=== PATIENT | male | born 1935 | race Caucasian/White ===

== ENCOUNTER 2016-09-19 08:02 | Emergency (ER) | payer OTHER ==
--- NOTE | 2016-09-19 08:56 | DIAGNOSTIC IMAGING REPORT ---
PROCEDURE: CT HEAD WITHOUT CONTRAST INDICATION: TRAUMA/INJURY TECHNIQUE: Noncontrast axial images with sagittal and coronal reformations. COMPARISON: None. FINDINGS: Mild motion. 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 There are moderate chronic atrophic changes. Brain and ventricles are otherwise normal. No evidence of an acute process or hemorrhage. There are marked left vertebral and moderate cavernous carotid arterial calcifications Sinuses and mastoids are normal. IMPRESSION: 1. 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 2. Moderate atrophic changes. 3. Otherwise negative head CT. No evidence of acute process. 4. Findings discussed with Dr. Mery Patiño (0[address] All [address] scans at this facility use dose modulation, iterative reconstruction, and/or weight-based dosing when appropriate to reduce radiation dose to as low as reasonably achievable.
--- NOTE | 2016-09-19 10:35 | DIAGNOSTIC IMAGING REPORT ---
PROCEDURE: XR CHEST 1 VIEW INDICATION: SHORTNESS OF BREATH TECHNIQUE: Portable AP view (0950 hours). COMPARISON: None. FINDINGS: Moderate cardiomegaly with mild pulmonary vascular congestion/interstitial changes. Mediastinum is normal. There is an old fracture the left proximal humerus (partially obscured by markers). IMPRESSION: 1. Moderate cardiomegaly with borderline/mild congestive heart failure. 2. Otherwise negative chest.
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
--- NOTE | 2016-09-19 13:04 | ED ORDER SUMMARY ---
..... Patient: AMANDEEP JIMENEZ OrderSheet [facility] VisitID: [id number] [place] [address] 81y, M Registration Date/Time: 09/19/2016 ORDER SHEET Weight: 77.1 kg (stated) Allergies: Cephalexin GENERAL ORDERS: CT Head wo Cont Urgent (08:22 09/19/2016 Sarabjit MORELAND) (Ack 8:36 LNations ER Tech1) (8:51 LNations ER Tech1) EKG - ER Stat (08:34 09/19/2016 Sarabjit MORELAND) (Ack 8:36 LNations ER Tech1) (8:51 LNations ER Tech1) Chest 1V Urgent (09:15 09/19/2016 Sarabjit MORELAND) (Ack 9:17 LNations ER Tech1) (11:22 NHouse ER Tech1) Rapid Influenza Screen (Nasal Pharyngeal) (swab) Urgent (09:15 09/19/2016 Sarabjit MORELAND) (Ack 9:17 LNations ER Tech1) (9:21 JSimbeck R.N.) Cardiac Panel Stat (09:15 09/19/2016 Sarabjit MORELAND) (Ack 9:17 LNations ER Tech1) (9:56 JSimbeck R.N.) MEDICATION ORDERS: IV FLUIDS: IV NS : initial bolus 250 mL (1000 mL/hr), then none - for X1 (NOW); Urgent (11:49 09/19/2016 Roger MORELAND) (12:03 JSimbeck R.N.) ORDER SHEET NOTES: [Electronically signed by Jesu Syed R.N. (17:03 09/19/2016)] [Electronically signed by Luis Cordoba MD (18:23 09/24/2016)] [Electronically locked/signed by Jesu Syed R.N. (17:03 09/19/2016)]
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
--- NOTE | 2016-09-19 13:04 | ED ORDER SUMMARY ---
..... Patient: AMANDEEP JIMENEZ OrderSheet [facility] VisitID: [id number] [place] [address] 81y, M Registration Date/Time: 09/19/2016 ORDER SHEET Weight: 77.1 kg (stated) Allergies: Cephalexin GENERAL ORDERS: CT Head wo Cont Urgent (08:22 09/19/2016 Sarabjit MORELAND) (Ack 8:36 LNations ER Tech1) (8:51 LNations ER Tech1) EKG - ER Stat (08:34 09/19/2016 Sarabjit MORELAND) (Ack 8:36 LNations ER Tech1) (8:51 LNations ER Tech1) Chest 1V Urgent (09:15 09/19/2016 Sarabjit MORELAND) (Ack 9:17 LNations ER Tech1) (11:22 NHouse ER Tech1) Rapid Influenza Screen (Nasal Pharyngeal) (swab) Urgent (09:15 09/19/2016 Sarabjit MORELAND) (Ack 9:17 LNations ER Tech1) (9:21 JSimbeck R.N.) Cardiac Panel Stat (09:15 09/19/2016 Sarabjit MORELAND) (Ack 9:17 LNations ER Tech1) (9:56 JSimbeck R.N.) MEDICATION ORDERS: IV FLUIDS: IV NS : initial bolus 250 mL (1000 mL/hr), then none - for X1 (NOW); Urgent (11:49 09/19/2016 Roger MORELAND) (12:03 JSimbeck R.N.) ORDER SHEET NOTES: [Electronically signed by Jesu Syed R.N. (17:03 09/19/2016)] [Electronically signed by Luis Cordoba MD (18:23 09/24/2016)] [Electronically locked/signed by Jesu Syed R.N. (17:03 09/19/2016)]
--- NOTE | 2016-09-19 13:04 | ED CLINICAL REPORT ---
Clinical Report - Physicians/Mid Levels Located Within [facility] [address] [place] [address] 09/19/2016 8:05 Patient: AMANDEEP JIMENEZ Time Seen: 08:10. Arrived- By ambulance. Historian- patient and EMS personnel. History limited by vague historian. HISTORY OF PRESENT ILLNESS Location of injuries- head. Chief Complaint: INJURY TO HEAD and fall. The injury occurred just prior to arrival. Occurred at a assisted. Fell (Pt states he suddenly felt weak and his legs gave out while walking with his walker to the dining room. Pt had a minor blow to the head during the fall, but no LOC or other injuries. Pt states this happened a couple of days ago, and that the weakness was momentary. However, today, the weakness has persisted to some degree since the fall.). The patient denies pain. The patient sustained a mild blow to the head. No neck pain, loss of consciousness or seizure. Not dazed. (Pt states he is supposed to have dialysis this afternoon. He had a stroke 2 months ago, and is on ASA and Plavix.). REVIEW OF SYSTEMS No numbness, hearing loss, nausea, chest pain or loss of vision. No vomiting, difficulty breathing, bladder dysfunction, laceration or fever. He has had weakness. Has not recently been ill. All systems otherwise negative, except as recorded above. PAST HISTORY Problems: Hypertension. CVA - Cerebrovascular Accident. High blood pressure . CAD. Bph. TIA - Transient Ischemic Attack. Dementia. Anemia. Dialysis. Dialysis Shunt. Diabetes Mellitus. Additional Surgeries: Cataract Surgery. Hip Surgery. Medications: Lantus Subcutaneous. Vit D-Vit E-Safflower Oil External. Tamsulosin HCl Oral. Renvela Oral. Losartan Potassium Oral. Clopidogrel Bisulfate Oral. Atorvastatin Calcium Oral. Aspirin Oral. Allergies: Cephalexin. SOCIAL HISTORY Never smoker. No alcohol use or drug use. FAMILY HISTORY Denies family medical history. ADDITIONAL NOTES The nursing notes have been reviewed. PHYSICAL EXAM Vital Signs: 09/19/2016 08:07 BP: 98/64. HR: 85. RR: 26. O2 saturation: 98%. Temp: 97.7 F. Pain level now: 0/10. Have been reviewed. Appearance: Alert. Head: Vertex: mild tenderness and swelling and small abrasion and ecchymosis. Eyes: Pupils equal, round and reactive to light. ENT: No dental injury. No hemotympanum. Pharynx normal. Neck: Painless ROM. Neck non-tender. No vertebral tenderness. CVS: Heart sounds normal. Respiratory: Breath sounds normal. Abdomen: Soft and nontender. No organomegaly. Back: No tenderness. ROM normal. No tenderness. Skin: Skin intact. Skin warm and dry. Extremities: Pelvis stable. Extremities atraumatic. No lower extremity edema. Neuro: Speech normal. LABS, X-RAYS, AND EKG EKG: EKG time: (0850). No acute process. Normal sinus rhythm. Rate: 87. Normal P waves. First-degree atrioventricular block. Normal QRS complex. Right axis deviation. Normal QT and QTc. Non-specific ST segment / T wave abnormalities. Prior EKG unavailable. The study has been interpreted contemporaneously by me. The study has been independently viewed by me. The EKG appears to be a good tracing. I agree with and confirm the computer reading of the EKG. CT Head: No acute changes. No bony abnormalities, no hemorrhage, no intracranial mass, no midline shift and no hydrocephalus. There is moderate atrophy is present. Head CT performed without contrast. The study was independently viewed by me, interpreted by the radiologist and contemporaneously by me and discussed with the radiologist. Prior studies were not available for comparison. Laboratory Tests: CBC w Diff: (CARLOS: 09/19/2016 09:34) ( MsgRcvd 09/19/2016 09:41) Final results Test Result Flag Units (Reference) WHITE BLOOD COUNT 10.5 K/uL (4.5-11.5) RED BLOOD COUNT 3.36 L M/uL (4.50-5.90) HEMOGLOBIN 9.9 L gm/dL (13.5-17.5) HEMATOCRIT 30.8 L % (41.0-53.0) MEAN CELL VOLUME 92 fL (80-100) MEAN CORPUSCULAR HGB 29 pg (26-34) MEAN CORPUSCULAR HGB CONC 32 g/dL (31-37) RED CELL DISTRIBUTION WIDTH 17.1 H % (11.6-14.8) PLATELET COUNT 171 K/uL (150-400) NEUTROPHIL % 88.4 H % (50-75) LYMPH % 6.7 L % (25-40) MONO % 4.4 % (3-14) EOSINOPHIL % 0.5 % (0-4) BASOPHIL % 0 % (0-2) CHEM 13 PANEL: (CARLOS: 09/19/2016 09:34) ( MsgRcvd 09/19/2016 10:02) Final results Test Result Flag Units (Reference) GLUCOSE 251 H mg/dL (70-110) BUN 22 H mg/dL (7-18) CREATININE 4.4 H mg/dL (0.6-1.3) Estimated GFR 13.86 mL/min Estimated GFR- 16.80 mL/min Note: Persistent reduction over 3 months in eGFR<60 mL/min/1.73 m2 defines CKD. Patients with eGFR values>=60 mL/min/1.73 m2 may also have CKD if evidence ofpersistent proteinuria. Additional information may be foundat [email or web address].org. SODIUM 136 mmol/L (136-145) POTASSIUM 5.1 mmol/L (3.5-5.1) CHLORIDE 99 mmol/L (98-107) CARBON DIOXIDE 31 mmol/L (21-32) CALCIUM 9.9 mg/dL (8.5-10.1) TOTAL PROTEIN 7.3 g/dL (6.4-8.2) ALBUMIN 3.4 g/dL (3.3-5.0) BILIRUBIN, TOTAL 0.6 mg/dL (0.0-1.0) ALKALINE PHOSPHATASE 71 U/L (46-116) AST (SGOT) 11 L U/L (15-37) ALT (SGPT) 17 U/L (12-78) CPK 36 U/L (24-260) MAGNESIUM 2.2 mg/dL (1.8-2.4) TROPONIN I 0.09 ng/mL (0.00-1.5) TROPONIN REFERENCE RANGE:<0.1 NEGATIVE0.1-1.5 INDETERMINANT>1.5 POSITIVE Rapid Influenza Screen: (CARLOS: 09/19/2016 09:18) ( MsgRcvd 09/19/2016 09:35) Final results SPECIMEN DESCRIPTION: SWAB Test Result Flag Units (Reference) RAPID INFLUENZA SCREEN DATE: 09/19/16 INFLUENZA A: NEGATIVE SCREEN FOR INFLUENZA A INFLUENZA B: NEGATIVE SCREEN FOR INFLUENZA B . PROGRESS AND PROCEDURES Course of Care: Patient is stable. Patient/family counseled. Old medical records ordered. Old records unavailable. Disposition: Discharged. Condition: stable. CLINICAL IMPRESSION Renal failure. Hypotension due to drugs. Single contusion to the head. Fall. INSTRUCTIONS (Do not attempt to walk until you are released to do so by your radio survey worker. Please ask staff at your assisted for assistance. You should use a wheelchair to get from one place to another). Warnings: HEAD INJURY PRECAUTIONS: An observer must check on the patient every 2 hours for the next 24 hours (awaken if sleeping) to confirm that the patient responds as expected, is not confused, has no new weakness or numbness, and has no other problems. GENERAL WARNINGS: Return or contact your physician immediately if your condition worsens or changes unexpectedly, if not improving as expected, or if other problems arise. Your Current Medications: STOP TAKING THE FOLLOWING MEDICATIONS: Losartan Potassium Oral. CONTINUE TAKING THE FOLLOWING MEDICATIONS: Aspirin Oral. Atorvastatin Calcium Oral. Clopidogrel Bisulfate Oral. Lantus Subcutaneous. Renvela Oral. Tamsulosin HCl Oral. Vit D-Vit E-Safflower Oil External. Follow-up: Follow up with a radio survey worker tomorrow. Call for an appointment. Understanding of the discharge instructions verbalized by patient and parent. (Electronically signed by Luis Cordoba MD 09/24/2016 18:23)
--- NOTE | 2016-09-19 13:04 | ED CLINICAL REPORT ---
Clinical Report - Physicians/Mid Levels [facility] [address] [place] [address] 09/19/2016 8:05 Patient: AMANDEEP JIMENEZ Time Seen: 08:10. Arrived- By ambulance. Historian- patient and EMS personnel. History limited by vague historian. HISTORY OF PRESENT ILLNESS Location of injuries- head. Chief Complaint: INJURY TO HEAD and fall. The injury occurred just prior to arrival. Occurred at a fdc. Fell (Pt states he suddenly felt weak and his legs gave out while walking with his walker to the dining room. Pt had a minor blow to the head during the fall, but no LOC or other injuries. Pt states this happened a couple of days ago, and that the weakness was momentary. However, today, the weakness has persisted to some degree since the fall.). The patient denies pain. The patient sustained a mild blow to the head. No neck pain, loss of consciousness or seizure. Not dazed. (Pt states he is supposed to have dialysis this afternoon. He had a stroke 2 months ago, and is on ASA and Plavix.). REVIEW OF SYSTEMS No numbness, hearing loss, nausea, chest pain or loss of vision. No vomiting, difficulty breathing, bladder dysfunction, laceration or fever. He has had weakness. Has not recently been ill. All systems otherwise negative, except as recorded above. PAST HISTORY Problems: Hypertension. CVA - Cerebrovascular Accident. High blood pressure . CAD. Bph. TIA - Transient Ischemic Attack. Dementia. Anemia. Dialysis. Dialysis Shunt. Diabetes Mellitus. Additional Surgeries: Cataract Surgery. Hip Surgery. Medications: Lantus Subcutaneous. Vit D-Vit E-Safflower Oil External. Tamsulosin HCl Oral. Renvela Oral. Losartan Potassium Oral. Clopidogrel Bisulfate Oral. Atorvastatin Calcium Oral. Aspirin Oral. Allergies: Cephalexin. SOCIAL HISTORY Never smoker. No alcohol use or drug use. FAMILY HISTORY Denies family medical history. ADDITIONAL NOTES The nursing notes have been reviewed. PHYSICAL EXAM Vital Signs: 09/19/2016 08:07 BP: 98/64. HR: 85. RR: 26. O2 saturation: 98%. Temp: 97.7 F. Pain level now: 0/10. Have been reviewed. Appearance: Alert. Head: Vertex: mild tenderness and swelling and small abrasion and ecchymosis. Eyes: Pupils equal, round and reactive to light. ENT: No dental injury. No hemotympanum. Pharynx normal. Neck: Painless ROM. Neck non-tender. No vertebral tenderness. CVS: Heart sounds normal. Respiratory: Breath sounds normal. Abdomen: Soft and nontender. No organomegaly. Back: No tenderness. ROM normal. No tenderness. Skin: Skin intact. Skin warm and dry. Extremities: Pelvis stable. Extremities atraumatic. No lower extremity edema. Neuro: Speech normal. LABS, X-RAYS, AND EKG EKG: EKG time: (0850). No acute process. Normal sinus rhythm. Rate: 87. Normal P waves. First-degree atrioventricular block. Normal QRS complex. Right axis deviation. Normal QT and QTc. Non-specific ST segment / T wave abnormalities. Prior EKG unavailable. The study has been interpreted contemporaneously by me. The study has been independently viewed by me. The EKG appears to be a good tracing. I agree with and confirm the computer reading of the EKG. CT Head: No acute changes. No bony abnormalities, no hemorrhage, no intracranial mass, no midline shift and no hydrocephalus. There is moderate atrophy is present. Head CT performed without contrast. The study was independently viewed by me, interpreted by the radiologist and contemporaneously by me and discussed with the radiologist. Prior studies were not available for comparison. Laboratory Tests: CBC w Diff: (CARLOS: 09/19/2016 09:34) ( MsgRcvd 09/19/2016 09:41) Final results Test Result Flag Units (Reference) WHITE BLOOD COUNT 10.5 K/uL (4.5-11.5) RED BLOOD COUNT 3.36 L M/uL (4.50-5.90) HEMOGLOBIN 9.9 L gm/dL (13.5-17.5) HEMATOCRIT 30.8 L % (41.0-53.0) MEAN CELL VOLUME 92 fL (80-100) MEAN CORPUSCULAR HGB 29 pg (26-34) MEAN CORPUSCULAR HGB CONC 32 g/dL (31-37) RED CELL DISTRIBUTION WIDTH 17.1 H % (11.6-14.8) PLATELET COUNT 171 K/uL (150-400) NEUTROPHIL % 88.4 H % (50-75) LYMPH % 6.7 L % (25-40) MONO % 4.4 % (3-14) EOSINOPHIL % 0.5 % (0-4) BASOPHIL % 0 % (0-2) CHEM 13 PANEL: (CARLOS: 09/19/2016 09:34) ( MsgRcvd 09/19/2016 10:02) Final results Test Result Flag Units (Reference) GLUCOSE 251 H mg/dL (70-110) BUN 22 H mg/dL (7-18) CREATININE 4.4 H mg/dL (0.6-1.3) Estimated GFR 13.86 mL/min Estimated GFR- 16.80 mL/min Note: Persistent reduction over 3 months in eGFR<60 mL/min/1.73 m2 defines CKD. Patients with eGFR values>=60 mL/min/1.73 m2 may also have CKD if evidence ofpersistent proteinuria. Additional information may be foundat [email or web address]. SODIUM 136 mmol/L (136-145) POTASSIUM 5.1 mmol/L (3.5-5.1) CHLORIDE 99 mmol/L (98-107) CARBON DIOXIDE 31 mmol/L (21-32) CALCIUM 9.9 mg/dL (8.5-10.1) TOTAL PROTEIN 7.3 g/dL (6.4-8.2) ALBUMIN 3.4 g/dL (3.3-5.0) BILIRUBIN, TOTAL 0.6 mg/dL (0.0-1.0) ALKALINE PHOSPHATASE 71 U/L (46-116) AST (SGOT) 11 L U/L (15-37) ALT (SGPT) 17 U/L (12-78) CPK 36 U/L (24-260) MAGNESIUM 2.2 mg/dL (1.8-2.4) TROPONIN I 0.09 ng/mL (0.00-1.5) TROPONIN REFERENCE RANGE:<0.1 NEGATIVE0.1-1.5 INDETERMINANT>1.5 POSITIVE Rapid Influenza Screen: (CARLOS: 09/19/2016 09:18) ( MsgRcvd 09/19/2016 09:35) Final results SPECIMEN DESCRIPTION: SWAB Test Result Flag Units (Reference) RAPID INFLUENZA SCREEN DATE: 09/19/16 INFLUENZA A: NEGATIVE SCREEN FOR INFLUENZA A INFLUENZA B: NEGATIVE SCREEN FOR INFLUENZA B . PROGRESS AND PROCEDURES Course of Care: Patient is stable. Patient/family counseled. Old medical records ordered. Old records unavailable. Disposition: Discharged. Condition: stable. CLINICAL IMPRESSION Renal failure. Hypotension due to drugs. Single contusion to the head. Fall. INSTRUCTIONS (Do not attempt to walk until you are released to do so by your middleware consultant. Please ask staff at your fdc for assistance. You should use a wheelchair to get from one place to another). Warnings: HEAD INJURY PRECAUTIONS: An observer must check on the patient every 2 hours for the next 24 hours (awaken if sleeping) to confirm that the patient responds as expected, is not confused, has no new weakness or numbness, and has no other problems. GENERAL WARNINGS: Return or contact your physician immediately if your condition worsens or changes unexpectedly, if not improving as expected, or if other problems arise. Your Current Medications: STOP TAKING THE FOLLOWING MEDICATIONS: Losartan Potassium Oral. CONTINUE TAKING THE FOLLOWING MEDICATIONS: Aspirin Oral. Atorvastatin Calcium Oral. Clopidogrel Bisulfate Oral. Lantus Subcutaneous. Renvela Oral. Tamsulosin HCl Oral. Vit D-Vit E-Safflower Oil External. Follow-up: Follow up with a middleware consultant tomorrow. Call for an appointment. Understanding of the discharge instructions verbalized by patient and parent. (Electronically signed by Luis Cordoba MD 09/24/2016 18:23)
--- NOTE | 2016-09-24 18:24 | ED MED RECONCILIATION SUMMARY ---
Patient: AMANDEEP JIMENEZ Medication Reconciliation Report [facility] VisitID: [id number] [address] [place] [address] 81y, M Registration Date/Time: 09/19/2016 Weight: 77.1 kg Height/Length: 72 in. BMI: 23.1 ALLERGIES: Cephalexin The patient's Home Medications are listed below: STOP TAKING THE FOLLOWING MEDICATIONS: Losartan Potassium Oral CONTINUE TAKING THE FOLLOWING MEDICATIONS: Aspirin Oral Atorvastatin Calcium Oral Clopidogrel Bisulfate Oral Lantus Subcutaneous Renvela Oral Tamsulosin HCl Oral Vit D-Vit E-Safflower Oil External The source(s) of the original Home Medication information: Not obtained. The following Medications were given to the patient in the Emergency Department: IV NS IV Fluids bolus 250 mL over 15 minute(s), administered: 09/19/2016 11:55:00 AM IV NS IV Fluids bolus 250 mL over 15 minute(s), administered: 09/19/2016 12:35:00 PM The following Medications were prescribed to the patient: None.
--- NOTE | 2016-09-24 18:24 | ED DISCHARGE INSTRUCTIONS ---
Patient: AMANDEEP JIMENEZ General Instructions [facility] VisitID: [id number] [place] [address] 81y, M Registration Date/Time: 09/19/2016 Renal failure. Hypotension due to drugs. Single contusion to the head. Fall. INSTRUCTIONS (Do not attempt to walk until you are released to do so by your rotary filter operator. Please ask staff at your [facility] for assistance. You should use a wheelchair to get from one place to another). Warnings: HEAD INJURY PRECAUTIONS: An observer must check on the patient every 2 hours for the next 24 hours (awaken if sleeping) to confirm that the patient responds as expected, is not confused, has no new weakness or numbness, and has no other problems. GENERAL WARNINGS: Return or contact your physician immediately if your condition worsens or changes unexpectedly, if not improving as expected, or if other problems arise. Your Current Medications: STOP TAKING THE FOLLOWING MEDICATIONS: Losartan Potassium Oral. CONTINUE TAKING THE FOLLOWING MEDICATIONS: Aspirin Oral. Atorvastatin Calcium Oral. Clopidogrel Bisulfate Oral. Lantus Subcutaneous. Renvela Oral. Tamsulosin HCl Oral. Vit D-Vit E-Safflower Oil External. Follow-up: Follow up with a rotary filter operator tomorrow. Call for an appointment. Understanding of the discharge instructions verbalized by patient and parent. ADDITIONAL INFORMATION Mechanical Fall You have had a fall today. It appears that the cause is mechanical. That means that you slipped, tripped or lost your balance. If your fall had been due to fainting or a seizure, further tests would be required. Home Care: Rest today and resume your normal activities when you are feeling back to normal. If you were injured during the fall, follow the advice from your doctor regarding care of your injury. You may use acetaminophen (Tylenol) or ibuprofen (Motrin, Advil) to control pain, unless another pain medicine was prescribed. [NOTE: If you have chronic liver or kidney disease or ever had a stomach ulcer or GI bleeding, talk with your doctor before using these medicines.] Fall Prevention: Was there anything that caused your fall that can be fixed, removed, or replaced? Make your home safe by keeping walkways clear of objects you may trip over. Use non-slip pads under rugs. Do not walk in poorly lit areas. Do not stand on chairs or wobbly ladders. Use caution when reaching overhead or looking upward. This position can cause a loss of balance. Be sure your shoes fit properly, have non-slip bottoms and are in good condition. Be cautious when going up and down curbs, and walking on uneven sidewalks. If your balance is poor, consider using a cane or walker. Stay as active as you can. Balance, flexibility, strength, and endurance all come from exercise. They all play a role in preventing falls. Follow Up with your doctor or as advised by our staff. Get Prompt Medical Attention if any of the following occur: Repeated mechanical falls, or unexplained falls Dizziness, fainting or seizure Severe headache Chest pain or shortness of breath Palpitations (very rapid or very slow or irregular heartbeat) Blood in vomit, stools (black or red color) Weakness of an arm or leg or one side of the face Difficulty with speech or vision Scalp Contusion [W/ Wake-Up] A scalp contusion is a bruise with swelling. Sometimes there is bleeding under the skin. The swelling should start to go down within two days. Although there is no sign of a serious injury at this time, symptoms may show up later. These could be a sign of a more serious problem (bruising or bleeding in the brain). Home Care: During the next 24 hours someone must stay with you. This person should WAKE YOU EVERY TWO HOURS to check for the signs below. If you have swelling of the face or scalp, apply an ice pack (ice cubes in a plastic bag, wrapped in a towel). Do this for 20 minutes every 1-2 hours until the swelling starts to go down. You may use acetaminophen (Tylenol) or ibuprofen (Motrin, Advil) to control pain, unless another pain medicine was prescribed. [ NOTE : If you have chronic liver or kidney disease or ever had a stomach ulcer or GI bleeding, talk with your doctor before using these medicines.] For the next 24 hours: Do not take alcohol, sedatives or medicines that make you sleepy. Do not drive or operate machinery. Avoid strenuous activities. No lifting or straining. If you have had any symptoms of a concussion today (nausea, vomiting, dizziness, confusion, headache, memory loss or if you were knocked out), do not return to sports or any activity that could result in another head injury until all symptoms are gone and you have been cleared by your doctor. A second head injury before fully recovering from the first one can lead to serious brain injury. Follow Up with your doctor if symptoms are not improving after 24 hours, or as directed. [NOTE: Any X-rays or CT scans taken will be reviewed by a radiologist. You will be notified of any new findings that may affect your care.] Get Prompt Medical Attention if any of the following occur: Repeated vomiting Severe or worsening headache or dizziness Unusual drowsiness, or unable to awaken as usual Confusion or change in behavior or speech, memory loss, blurred vision Convulsion (seizure) Increasing scalp or face swelling Redness, warmth or pus from the swollen area Fluid drainage or bleeding from the nose or ears Fever of 100.4F(38C) or higher, or as directed by your healthcare provider Chronic Renal Failure The role of the kidneys is to remove waste products and excess water from the blood. When the kidneys do not function normally and waste products begin to build up in the blood, this is called renal insufficiency. When it is advanced, it is called chronic renal failure or end-stage renal disease.Chronic renal failure allows excess water, waste and toxic substances to build up in the body. This can eventually become life-threatening, requiring dialysis or a kidney transplant to stay alive. Diabetes is the leading causes of chronic renal failure. Other causes include high blood pressure, hardening of the arteries (atherosclerosis), lupus, inflammation of the blood vessels (vasculitis), prior viral and bacterial infections, and others. Certain [id number]-cdb-[id number] pain medicines can cause renal failure when taken often over a long period of time. These include aspirin, ibuprofen (Advil, Motrin) and related anti-inflammatory medicines. Home Care: If you have diabetes, talk to your doctor about the quality of your blood sugar control and any adjustments needed to your diet. If you have high blood pressure: Take prescribed medicine to lower your blood pressure to normal (130/80 mm Hg). Take up a regular exercise program that you enjoy.Check with your doctor to be sure your planned exercise program is right for you. Reduce your salt (sodium) intake.Your doctor can tell you how much salt per day is safe for you. If you are overweight, talk to your doctor about a weight loss plan. If you smoke, you must quit. Smoking worsens kidney disease.Talk to your doctor about ways to help you quit. For more information, visit the following links: www.smokefree.gov/pubs/clearing_the_air.pdf www.smokefree.gov www.quitnet.com All patients with chronic renal failure need to follow a special diet. Be sure you understand yours. In general, you will need to restrict protein, salt, potassium and phosphorus.You also need to limit fluid intake.A calcium supplement will be prescribed to protect your bones from osteoporosis. Avoid the following over the counter medicines, or consult your doctor before using: Aspirin and anti-inflammatory drugs such as ibuprofen (Advil, Motrin), naprosyn (Aleve); [Short term use of acetaminophen (Tylenol) for fever or pain is okay.] Laxatives and antacids containing magnesium or aluminum (Mylanta, Maalox) Fleet or phosphosoda enemas containing phosphorus Certain stomach acid-blocking medicine such as cimetidine (Tagamet), ranitidine (Zantac) Decongestants containing pseudoephedrine (such as some forms of Sudafed or Actifed) Herbal supplements Follow Up with your doctor or as advised by our staff. Contact one of the following for more information. [place] [employer] www.aakp.org National Kidney Foundation www.kidney.org [NOTE: If an X-ray or EKG (cardiogram) was made, another specialist will review it. You will be notified of any new findings that may affect your care.] Return Promptly or contact your doctor if any of the following occurs: Nausea or vomiting Severe weakness, dizziness, fainting, drowsiness or confusion Chest pain or shortness of breath Unexpected weight gain or swelling in the legs, ankles or around the eyes Heart beating fast, slow or irregularly Decrease or absent urine output Orthostatic Hypotension The normal blood pressure range is between 90/60and 140/80. Low blood pressure (also calledhypotension) is a decrease in blood pressure from what is normal for you. Orthostatic hypotensionis a type of low blood pressure that occurs only when changing body position from lying to standing. It can cause symptoms of dizziness, lightheadedness or fainting. Some of the causesof orthostatic hypotension are: Certain medicines, including: High blood pressure medicines Diuretics (water pills) Some heart medicines Some antidepressants Pain, anxiety, sedative, and sleeping medicines Dehydration (from vomiting, diarrhea, or poor fluid intake) Severe infection, high fever Blood loss (for example, bleeding from the stomach or intestines) Treatment will depend on the cause of your low blood pressure. Home Care: Rest until symptoms improve. Change positions slowly from lying to standing.When getting out of bed, sit on the side of the bed with your legs down for at least 30 seconds before standing. This gives your body time to adjust to the position change. Follow the treatment plan described by your physician. Follow Up with your doctor or as advised by our staff. Get Prompt Medical Attention if any of the following occur: Dizziness, lightheadedness or fainting Black or red color in your stools or vomit Persistent diarrhea or vomiting Inability to eat or drink Fever of 100.4F (38C) or higher, or as directed by your healthcare provider Urinary burning or foul-smelling urine Head Injury With Wake-Up (Adult) You have had a head injury. It does not appear serious at this time. Symptoms of a more serious problem (concussion, bruising, or bleeding in the brain) may appear later. Therefore, watch for the WARNING SIGNS listed below. Home Care: During the next 24 hours someone must stay with you. This person should wake you every 2 hours to check for the signs below. If you have swelling of the face or scalp, apply an ice pack (ice cubes in a plastic bag, wrapped in a towel) for 20 minutes every 1-2 hours until the swelling starts to go down. Do not use aspirin or ibuprofen (Motrin, Advil) after a head injury. You may use acetaminophen (Tylenol) to control pain, unless another pain medicine was prescribed. [NOTE: If you have chronic liver or kidney disease or ever had a stomach ulcer or GI bleeding, talk with your doctor before using these medicines.] For the next 24 hours: Do not take alcohol, sedatives, or medicines that make you sleepy. Do not drive or operate machinery. Avoid strenuous activities. No lifting or straining. If you have had any symptoms of a concussion today (nausea, vomiting, dizziness, confusion, headache, memory loss, or you were knocked out), do not return to sports or any activity that could result in another head injury until all symptoms are gone and you have been cleared by your doctor. A second head injury before fully recovering from the first one can lead to serious brain injury. Follow Up with your doctor if symptoms are not improving after 24 hours, or as directed. [NOTE: A radiologist will review any X-rays or CT scans that were taken. We will notify you of any new findings that may affect your care.] Get Prompt Medical Attention if any of the following WARNING SIGNS occur: Repeated vomiting Severe or worsening headache or dizziness Unusual drowsiness, or unable to awaken as usual Confusion or change in behavior or speech, memory loss, blurred vision Convulsion (seizure) Increasing scalp or face swelling Redness, warmth or pus from the swollen area Fluid drainage or bleeding from the nose or ears You have been given the following additional information: Fall, Mechanical Scalp Contusion With Wake Up Chronic Renal Failure Hypotension, Orthostatic HEAD INJURY with Wake-Up (Adult) (Electronically signed by Luis Cordoba MD 09/24/2016 18:23)
--- NOTE | 2016-09-24 18:24 | ED MED RECONCILIATION SUMMARY ---
Patient: AMANDEEP JIMENEZ Medication Reconciliation Report [facility] VisitID: [id number] [address] [place] [address] 81y, M Registration Date/Time: 09/19/2016 Weight: 77.1 kg Height/Length: 72 in. BMI: 23.1 ALLERGIES: Cephalexin The patient's Home Medications are listed below: STOP TAKING THE FOLLOWING MEDICATIONS: Losartan Potassium Oral CONTINUE TAKING THE FOLLOWING MEDICATIONS: Aspirin Oral Atorvastatin Calcium Oral Clopidogrel Bisulfate Oral Lantus Subcutaneous Renvela Oral Tamsulosin HCl Oral Vit D-Vit E-Safflower Oil External The source(s) of the original Home Medication information: Not obtained. The following Medications were given to the patient in the Emergency Department: IV NS IV Fluids bolus 250 mL over 15 minute(s), administered: 09/19/2016 11:55:00 AM IV NS IV Fluids bolus 250 mL over 15 minute(s), administered: 09/19/2016 12:35:00 PM The following Medications were prescribed to the patient: None.
--- NOTE | 2016-09-24 18:24 | ED MAR SUMMARY ---
..... Medication Administration Record [facility] [address] [place] [address] Patient: AMANDEEP JIMENEZ Visit ID: [id number] 81y, M Weight: 77.1 kg Height/Length: 72 in BMI: 23.1 ALLERGIES: Cephalexin Start 11:55 09/19/2016 Jesu Syed R.N., Stop 12:15 09/19/2016 Jesu Syed R.N. Medication Administered: IV NS (SALINE), Dose: IV Fluids, Bolus: 250 mL over 15 minute(s), Site: #1 right wrist. Medication Ordered: IV NS : initial bolus 250 mL (1000 mL/hr), then none - for X1 (NOW); Urgent. Start 12:35 09/19/2016 Jesu Syed R.N., Stop 12:50 09/19/2016 Jesu Syed R.N. Medication Administered: IV NS (SALINE), Dose: IV Fluids, Bolus: 250 mL over 15 minute(s), Site: #1 right wrist. Medication Ordered: IV NS : initial bolus 250 mL (1000 mL/hr), then none - for X1 (NOW); Urgent.
--- NOTE | 2016-09-24 18:24 | ED MAR SUMMARY ---
..... Medication Administration Record [facility] [address] [place] [address] Patient: AMANDEEP JIMENEZ Visit ID: [id number] 81y, M Weight: 77.1 kg Height/Length: 72 in BMI: 23.1 ALLERGIES: Cephalexin Start 11:55 09/19/2016 Jesu Syed R.N., Stop 12:15 09/19/2016 Jesu Syed R.N. Medication Administered: IV NS (SALINE), Dose: IV Fluids, Bolus: 250 mL over 15 minute(s), Site: #1 right wrist. Medication Ordered: IV NS : initial bolus 250 mL (1000 mL/hr), then none - for X1 (NOW); Urgent. Start 12:35 09/19/2016 Jesu Syed R.N., Stop 12:50 09/19/2016 Jesu Syed R.N. Medication Administered: IV NS (SALINE), Dose: IV Fluids, Bolus: 250 mL over 15 minute(s), Site: #1 right wrist. Medication Ordered: IV NS : initial bolus 250 mL (1000 mL/hr), then none - for X1 (NOW); Urgent.
== END 2016-09-19 14:20 | disposition home or self-care (01) ==
LOC: ED SRH 08:02
DX: S00.93XA Contusion of unspecified part of head, initial encounter (principal); I95.9 Hypotension, unspecified; N19 Unspecified kidney failure; W01.10XA Fall on same level from slipping, tripping and stumbling with subsequent striking against unspecified object, initial encounter; Y93.01 Activity, walking, marching and hiking; Y99.8 Other external cause status; Y92.129 Unspecified place in nursing home as the place of occurrence of the external cause; Z88.1 Allergy status to other antibiotic agents; I10 Essential (primary) hypertension; E11.9 Type 2 diabetes mellitus without complications
CPT/HCPCS: 90100; 90616; 91400; 92610; 92720; 95059

== ENCOUNTER 2016-11-04 19:28 | Emergency (ER) | payer OTHER ==
--- NOTE | 2016-11-04 19:53 | ED CLINICAL REPORT ---
Clinical Report - Physicians/Mid Levels [facility] [address] [place] [address] 11/04/2016 19:29 Patient: AMANDEEP JIMENEZ Time Seen: 1922. Arrived- By ambulance. Historian- EMS personnel. HISTORY OF PRESENT ILLNESS Chief Complaint: CARDIAC ARREST and COLLAPSED. The patient had no preceding symptoms. Arrived with CPR in progress. 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 The patient collapsed. Down time before CPR (10 minutes). Paramedics findings: The patient had agonal respirations (initially, then apneic). Rhythm was asystole and pulseless electrical activity. Prehospital treatment: Intubation was performed. Oxygen administered. Compressions performed. Given epinephrine and sodium bicarbonate. Duration of prehospital treatment: 50 minutes. (PT has ESRD and received HD yesterday. Medics report that he collapsed upon arriving home with his after consuming a meal at a restaurant. Medics found the pt with sparse, agonal respirations and PEA. CPR commenced, with a total of 6 rounds of epinephrine, an amp of calcium and an amp of bicarb over 40 minutes. After 40 minutes of CPR in the field and no pulse regained, medics reviewed the case with me by phone, and it was determined that pt was not responding to resuscitation efforts, and a time of was called at 1904. However, medics report that just after that, after stopping CPR, they noted a brief run of narrow-complex beats on the monitor. They state they thought they felt a thready carotid pulse, so decided to transport. Pt was noted to become asystolic within a few minutes, and CPR was resumed. No further medication was administered, and pt has remained in asystole since. CPR has been in progress again for about 12 minutes.). Recent medical care: The patient was seen recently at another facility in a clinic. REVIEW OF SYSTEMS Unobtainable secondary to condition. PAST HISTORY Problems: Renal Failure. Hypotension. Hypertension. CVA - Cerebrovascular Accident. CAD. Bph. TIA - Transient Ischemic Attack. Dementia. Anemia. Dialysis. Diabetes Mellitus. Additional Surgeries: Cataract Surgery. Dialysis shunt placement. Hip Surgery. SOCIAL HISTORY Unknown history of use of substances. ADDITIONAL NOTES The nursing notes have been reviewed. PHYSICAL EXAM Vital Signs: Have been reviewed. Appearance: Ongoing CPR. Unresponsive. Eyes: Pupils fixed and dilated. ENT: Airway patent. (ET tube in place.). Neck: JVD present. CVS: Chest compressions performed. No spontaneous pulse. No heart sounds. Respiratory: Ventilated. No spontaneous respirations. (breath sounds clear with bagging). Abdomen: Soft. Skin: Cyanosis. Pallor. Extremities: No lower extremity edema. Neuro: Unresponsive. PROGRESS AND PROCEDURES Course of Care: Upon arrival in the ED, it had been 60 minutes since pt's collapse, during most of which pt had received ongoing attempts at resuscitation. The return to a perfusing rhythm was questionable, and it was unclear how long the pt had been in PEA after the apparent return to perfusion before CPR was resumed. CPR was continued while medics transferred the pt to our stretcher and nurses got the pt on the monitor. At this time, pt was found to still be in asystole and without pulses, spontaneous respirations, or detectible heart sounds by auscultation. Given the duration of resuscitation without return to a sustained perfusing rhythm, despite extensive efforts, I did feel it was appropriate to call time of at 1931. Daughter did arrive in the ED shortly cessation of efforts, and was informed of her father's demise. Critical care performed (30 minutes) (Time includes discussing case with family in person, and providing consultation by phone with medics 3 times regarding ongoing resuscitation efforts.). Time includes: direct patient care and documentation of patient care- see progress notes. Procedures excluded from critical care time: CPR. The patient required critical care due to the acute impairment of vital organ systems (cardiovascular, respiratory and central nervous system) and a high probability of imminent and life threatening deterioration. Multiple emergent and urgent interventions were required to prevent sudden life threatening deterioration. Family counseled regarding the patient's condition. Old medical records reviewed. Disposition: Discharged (to [facility]). Condition: . CLINICAL IMPRESSION Cardiac arrest secondary to unknown cause. Asystole. (Electronically signed by Mery Patiño MD 11/08/2016 13:33)
--- NOTE | 2016-11-04 19:53 | ED CLINICAL REPORT ---
Clinical Report - Physicians/Mid Levels [facility] [address] [place] [address] 11/04/2016 19:29 Patient: AMANDEEP JIMENEZ Time Seen: 1922. Arrived- By ambulance. Historian- EMS personnel. HISTORY OF PRESENT ILLNESS Chief Complaint: CARDIAC ARREST and COLLAPSED. The patient had no preceding symptoms. Arrived with CPR in progress. This occurred 60 minutes INTERNATIONAL NURSE. The patient collapsed. Down time before CPR (10 minutes). Paramedics findings: The patient had agonal respirations (initially, then apneic). Rhythm was asystole and pulseless electrical activity. Prehospital treatment: Intubation was performed. Oxygen administered. Compressions performed. Given epinephrine and sodium bicarbonate. Duration of prehospital treatment: 50 minutes. (PT has ESRD and received HD yesterday. Medics report that he collapsed upon arriving home with his after consuming a meal at a restaurant. Medics found the pt with sparse, agonal respirations and PEA. CPR commenced, with a total of 6 rounds of epinephrine, an amp of calcium and an amp of bicarb over 40 minutes. After 40 minutes of CPR in the field and no pulse regained, medics reviewed the case with me by phone, and it was determined that pt was not responding to resuscitation efforts, and a time of was called at 1904. However, medics report that just after that, after stopping CPR, they noted a brief run of narrow-complex beats on the monitor. They state they thought they felt a thready carotid pulse, so decided to transport. Pt was noted to become asystolic within a few minutes, and CPR was resumed. No further medication was administered, and pt has remained in asystole since. CPR has been in progress again for about 12 minutes.). Recent medical care: The patient was seen recently at another facility in a clinic. REVIEW OF SYSTEMS Unobtainable secondary to condition. PAST HISTORY Problems: Renal Failure. Hypotension. Hypertension. CVA - Cerebrovascular Accident. CAD. Bph. TIA - Transient Ischemic Attack. Dementia. Anemia. Dialysis. Diabetes Mellitus. Additional Surgeries: Cataract Surgery. Dialysis shunt placement. Hip Surgery. SOCIAL HISTORY Unknown history of use of substances. ADDITIONAL NOTES The nursing notes have been reviewed. PHYSICAL EXAM Vital Signs: Have been reviewed. Appearance: Ongoing CPR. Unresponsive. Eyes: Pupils fixed and dilated. ENT: Airway patent. (ET tube in place.). Neck: JVD present. CVS: Chest compressions performed. No spontaneous pulse. No heart sounds. Respiratory: Ventilated. No spontaneous respirations. (breath sounds clear with bagging). Abdomen: Soft. Skin: Cyanosis. Pallor. Extremities: No lower extremity edema. Neuro: Unresponsive. PROGRESS AND PROCEDURES Course of Care: Upon arrival in the ED, it had been 60 minutes since pt's collapse, during most of which pt had received ongoing attempts at resuscitation. The return to a perfusing rhythm was questionable, and it was unclear how long the pt had been in PEA after the apparent return to perfusion before CPR was resumed. CPR was continued while medics transferred the pt to our stretcher and nurses got the pt on the monitor. At this time, pt was found to still be in asystole and without pulses, spontaneous respirations, or detectible heart sounds by auscultation. Given the duration of resuscitation without return to a sustained perfusing rhythm, despite extensive efforts, I did feel it was appropriate to call time of at 1931. Daughter did arrive in the ED shortly cessation of efforts, and was informed of her father's demise. Critical care performed (30 minutes) (Time includes discussing case with family in person, and providing consultation by phone with medics 3 times regarding ongoing resuscitation efforts.). Time includes: direct patient care and documentation of patient care- see progress notes. Procedures excluded from critical care time: CPR. The patient required critical care due to the acute impairment of vital organ systems (cardiovascular, respiratory and central nervous system) and a high probability of imminent and life threatening deterioration. Multiple emergent and urgent interventions were required to prevent sudden life threatening deterioration. Family counseled regarding the patient's condition. Old medical records reviewed. Disposition: Discharged (to [facility]). Condition: . CLINICAL IMPRESSION Cardiac arrest secondary to unknown cause. Asystole. (Electronically signed by Mery Patiño MD 11/08/2016 13:33)
--- NOTE | 2016-11-10 10:38 | ED MAR SUMMARY ---
..... Medication Administration Record [facility] [address] [place] [address] Patient: AMANDEEP JIMENEZ Visit ID: [id number] 81y, M Weight: 77.0 kg Height/Length: 72 in BMI: 23 ALLERGIES: Cephalexin Start 19:15 11/04/2016 Javier Cristina R.N. Medication Administered: IV NS (SALINE), Dose: IV Fluids over 2 hour(s), Rate: 500 mL/hr, Dispensed: 1000 mL bag, Site: #1 right AC. Medication Ordered: IV NS : initial bolus none -, then 500 mL/hr (NOW).
--- NOTE | 2016-11-10 10:38 | ED ORDER SUMMARY ---
..... Patient: AMANDEEP JIMENEZ OrderSheet [facility] VisitID: [id number] [address] [place] [address] 81y, M Registration Date/Time: 11/04/2016 ORDER SHEET Weight: 77 kg (estimated) Allergies: Cephalexin GENERAL ORDERS: MEDICATION ORDERS: IV FLUIDS: IV NS : initial bolus none -, then 500 mL/hr (NOW) (20:44 11/04/2016 Ben Betts.Josette per protocol) (20:52 Ben Betts.Josette) ORDER SHEET NOTES: [Electronically signed by Mery Patiño MD (13:33 11/08/2016)] [Electronically signed by Javier Cristina R.N. (10:38 11/10/2016)] [Electronically locked/signed by Javier Cristina R.N. (10:38 11/10/2016)]
--- NOTE | 2016-11-10 10:38 | ED ORDER SUMMARY ---
..... Patient: AMANDEEP JIMENEZ OrderSheet [facility] VisitID: [id number] [address] [place] [address] 81y, M Registration Date/Time: 11/04/2016 ORDER SHEET Weight: 77 kg (estimated) Allergies: Cephalexin GENERAL ORDERS: MEDICATION ORDERS: IV FLUIDS: IV NS : initial bolus none -, then 500 mL/hr (NOW) (20:44 11/04/2016 Ben Betts.Josette per protocol) (20:52 Ben Betts.Josette) ORDER SHEET NOTES: [Electronically signed by Mery Patiño MD (13:33 11/08/2016)] [Electronically signed by Javier Cristina R.N. (10:38 11/10/2016)] [Electronically locked/signed by Javier Cristina R.N. (10:38 11/10/2016)]
--- NOTE | 2016-11-10 10:38 | ED DISCHARGE INSTRUCTIONS ---
Patient: AMANDEEP JIMENEZ General Instructions [facility] VisitID: [id number] [address] [place] [address] 81y, M Registration Date/Time: 11/04/2016 Cardiac arrest secondary to unknown cause. Asystole. (Electronically signed by Mery Patiño MD 11/08/2016 13:33)
--- NOTE | 2016-11-10 10:38 | ED MED RECONCILIATION SUMMARY ---
Patient: AMANDEEP JIMENEZ Medication Reconciliation Report [facility] VisitID: [id number] [address] [place] [address] 81y, M Registration Date/Time: 11/04/2016 Weight: 77 kg Height/Length: 72 in. BMI: 23.0 ALLERGIES: Cephalexin The patient's Home Medications are listed below: THE FOLLOWING MEDICATIONS NEED TO BE RECONCILED: Aspirin Oral Atorvastatin Calcium Oral Clopidogrel Bisulfate Oral Lantus Subcutaneous Losartan Potassium Oral Renvela Oral Tamsulosin HCl Oral Vit D-Vit E-Safflower Oil External The source(s) of the original Home Medication information: Not obtained. The following Medications were given to the patient in the Emergency Department: IV NS IV Fluids bolus 0, then 500 mL/hr, administered: 11/04/2016 7:15:00 PM The following Medications were prescribed to the patient: None.
--- NOTE | 2016-11-10 10:38 | ED NURSING NOTES ---
Clinical Report - Nurses [facility] [address] [place] [address] 11/04/2016 19:29 Patient: AMANDEEP JIMENEZ TRIAGE Triage time 1915. Chief Complaint: (Pt found down and asystolic--CPR in progress). --10:25 Javier Cristina R.N. Weight: 77 kg estimated. Height/Length: 72 inches Estimated. BMI: 23. --19:36 Javier Cristina R.N. Medications Aspirin Oral. Atorvastatin Calcium Oral. --10:38 Javier Cristina R.N. Clopidogrel Bisulfate Oral. Lantus Subcutaneous. Losartan Potassium Oral. Renvela Oral. Tamsulosin HCl Oral. Vit D-Vit E-Safflower Oil External. --10:38 Javier Cristina R.N. Allergies Cephalexin. --10:38 Javier Cristina R.N. History Arrived by EMS. Historian: EMS. Unaccompanied. Primary physician (Matthias Schwartz). ( Arrives from [facility] with CPR in progress. Medics state that they have been doing CPR for the last hour and that they got his heartbeat back for a brief time before he went asystolic again and CPOR was resumed. EMS states that pt activated [facility] call light at the [facility] and when staff responded in 2 minutes time, theyfound him pulseless on the floor and CPR was started and EMS was called.). --10:25 Javier Cristina R.N. PHYSICAL ASSESSMENT 19:15. To room via stretcher. RESPIRATORY: ( Bloody sputum returned in the ventilating bag. Pt is intubated.). --21:01 Javier Cristina R.N. 19:15. CVS: Cardiac rhythm: asystole; (When CPR stopped to review rhythm). --21:03 Javier Cristina R.N. NURSING PROGRESS NOTES 19:15 11/04/2016 Site #1 started prior to arrival by EMS via IV in the right antecubital space with an 20g angiocath. --20:47 Javier Cristina R.N. 19:15 11/04/2016 Started bag #1 1000 mL IV Fluids IV NS (Saline); at 500 mL/hr over 2 hour(s) via site #1. Allergies verified and confirmed 5 rights. IV patency established. IV site checked: no pain, redness, or swelling. IV flushed thoroughly pre- and post-medication administration. --20:52 Javier Cristina R.N. 19:15. Oxygen administered (bagged). Monitoring of patient in place; (CPR rhythm in response to chest compressions). --20:59 Javier Cristina R.N. <<STRICKEN ENTRY-- 19:15. ( Halt to CPR called by Dr. Patiño after holding CPR and pt returned to asystole.). --21:06 Javier Cristina R.N. --END STRIKE>> Correction --21:08 Javier Cristina R.N. 19:31. ( Halt to CPR called by Dr. Patiño after holding CPR and pt returned to asystole.). --21:08 Javier Cristina R.N. Locked/Released at 11/10/2016 10:38 by Javier Cristina R.N.
--- NOTE | 2016-11-10 10:38 | ED NURSING NOTES ---
Clinical Report - Nurses [facility] [place] [address] [place] [address] [place] [address] 11/04/2016 19:29 Patient: AMANDEEP JIMENEZ TRIAGE Triage time 1915. Chief Complaint: (Pt found down and asystolic--CPR in progress). --10:25 Javier Cristina R.N. Weight: 77 kg estimated. Height/Length: 72 inches Estimated. BMI: 23. --19:36 Javier Cristina R.N. Medications Aspirin Oral. Atorvastatin Calcium Oral. --10:38 Javier Cristina R.N. Clopidogrel Bisulfate Oral. Lantus Subcutaneous. Losartan Potassium Oral. Renvela Oral. Tamsulosin HCl Oral. Vit D-Vit E-Safflower Oil External. --10:38 Javier Cristina R.N. Allergies Cephalexin. --10:38 Javier Cristina R.N. History Arrived by EMS. Historian: EMS. Unaccompanied. Primary physician (Matthias Schwartz). ( [facility] with CPR in progress. Medics state that they have been doing CPR for the last hour and that they got his heartbeat back for a brief time before he went asystolic again and CPOR was resumed. EMS states that pt [facility] call [facility] and when staff responded in 2 minutes time, theyfound him pulseless on the floor and CPR was started and EMS was called.). --10:25 Javier Cristina R.N. PHYSICAL ASSESSMENT 19:15. To room via stretcher. RESPIRATORY: ( Bloody sputum returned in the ventilating bag. Pt is intubated.). --21:01 Javier Cristina R.N. 19:15. CVS: Cardiac rhythm: asystole; (When CPR stopped to review rhythm). --21:03 Javier Cristina R.N. NURSING PROGRESS NOTES 19:15 11/04/2016 Site #1 started prior to arrival by EMS via IV in the right antecubital space with an 20g angiocath. --20:47 Javier Cristina R.N. 19:15 11/04/2016 Started bag #1 1000 mL IV Fluids IV NS (Saline); at 500 mL/hr over 2 hour(s) via site #1. Allergies verified and confirmed 5 rights. IV patency established. IV site checked: no pain, redness, or swelling. IV flushed thoroughly pre- and post-medication administration. --20:52 Javier Cristina R.N. 19:15. Oxygen administered (bagged). Monitoring of patient in place; (CPR rhythm in response to chest compressions). --20:59 Javier Cristina R.N. <<STRICKEN ENTRY-- 19:15. ( Halt to CPR called by Dr. Patiño after holding CPR and pt returned to asystole.). --21:06 Javier Cristina R.N. --END STRIKE>> Correction --21:08 Javier Cristina R.N. 19:31. ( Halt to CPR called by Dr. Patiño after holding CPR and pt returned to asystole.). --21:08 Javier Cristina R.N. Locked/Released at 11/10/2016 10:38 by Javier Cristina R.N.
--- NOTE | 2016-11-10 10:38 | ED DISCHARGE INSTRUCTIONS ---
Patient: AMANDEEP JIMENEZ General Instructions [facility] VisitID: [id number] [address] [place] [address] 81y, M Registration Date/Time: 11/04/2016 Cardiac arrest secondary to unknown cause. Asystole. (Electronically signed by Mery Patiño MD 11/08/2016 13:33)
--- NOTE | 2016-11-10 10:38 | ED MED RECONCILIATION SUMMARY ---
Patient: AMANDEEP JIMENEZ Medication Reconciliation Report [facility] VisitID: [id number] [address] [place] [address] 81y, M Registration Date/Time: 11/04/2016 Weight: 77 kg Height/Length: 72 in. BMI: 23.0 ALLERGIES: Cephalexin The patient's Home Medications are listed below: THE FOLLOWING MEDICATIONS NEED TO BE RECONCILED: Aspirin Oral Atorvastatin Calcium Oral Clopidogrel Bisulfate Oral Lantus Subcutaneous Losartan Potassium Oral Renvela Oral Tamsulosin HCl Oral Vit D-Vit E-Safflower Oil External The source(s) of the original Home Medication information: Not obtained. The following Medications were given to the patient in the Emergency Department: IV NS IV Fluids bolus 0, then 500 mL/hr, administered: 11/04/2016 7:15:00 PM The following Medications were prescribed to the patient: None.
--- NOTE | 2016-11-10 10:38 | ED MAR SUMMARY ---
..... Medication Administration Record [facility] [address] [place] [address] Patient: AMANDEEP JIMENEZ Visit ID: [id number] 81y, M Weight: 77.0 kg Height/Length: 72 in BMI: 23 ALLERGIES: Cephalexin Start 19:15 11/04/2016 Javier Cristina R.N. Medication Administered: IV NS (SALINE), Dose: IV Fluids over 2 hour(s), Rate: 500 mL/hr, Dispensed: 1000 mL bag, Site: #1 right AC. Medication Ordered: IV NS : initial bolus none -, then 500 mL/hr (NOW).
== END 2016-11-04 21:31 | disposition expired ==
LOC: ED SRH 19:28
DX: I46.9 Cardiac arrest, cause unspecified (principal); E11.22 Type 2 diabetes mellitus with diabetic chronic kidney disease; I12.0 Hypertensive chronic kidney disease with stage 5 chronic kidney disease or end stage renal disease; N18.6 End stage renal disease; I25.10 Atherosclerotic heart disease of native coronary artery without angina pectoris; Z99.2 Dependence on renal dialysis; Z86.73 Personal history of transient ischemic attack (TIA), and cerebral infarction without residual deficits